=== PATIENT | female | born 1985 | race Caucasian/White ===

== ENCOUNTER → 2017-08-07 | Emergency (ER) | payer BC ==
[~2017-08-07] VITALS: Ht 170.2 cm; Wt 59.0 kg
[~2017-08-07] MED LIST: LIDODERM700 M1 TOPIC; ROBAXIN500 MG PO; TYLENOL EXTRA500 MG ORAL
[2017-08-07 15:14] VITALS: BP 113/64
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
[2017-08-07 16:42] VITALS: BP 113/64
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
--- NOTE | 2017-08-08 09:13 | Diagnostic Imaging Report ---
Indication: Reason For Exam: PAIN Technique: XRAY Chest 1v Comparison: None. Findings: The cardiomediastinal silhouette is normal. The lungs are clear. There is no evidence of pleural fluid. The bones are unremarkable. Impression: Normal chest.
== END | disposition home or self-care (01) ==
LOC: EMR 16:25
DX: S00.83XA Contusion of other part of head, initial encounter (principal); S16.1XXA Strain of muscle, fascia and tendon at neck level, initial encounter; V43.52XA Car driver injured in collision with other type car in traffic accident, initial encounter; Y92.410 Unspecified street and highway as the place of occurrence of the external cause
CPT/HCPCS: 70150; 71045; 99284